=== PATIENT | female | born 1990 | race Caucasian/White ===

== ENCOUNTER 2019-08-15 19:45 | Emergency (ER) | payer MEDICAID ==
[~2019-08-15] VITALS: Ht 170.2 cm; Wt 59.0 kg
--- NOTE | 2019-08-15 20:00 | NUR ---
PT [facility] AND [employer]. PER RA, PT FOUND SLEEPING IN CAR WITH EMPTY BOTTLES OF ALCOHOL. SMELL OF ALCOHOL ON BREATH ON ARRIVAL. PT AWAKE, SLURRED SPEECH AND YELLING. VITAL SIGNS STABLE. RESPIRATIONS EVEN AND UNLABORED. NO ACUTE DISTRESS NOTED AT THIS TIME. [employer] AT BEDSIDE. WILL CONTINUE TO MONITOR
--- NOTE | 2019-08-15 20:42 | NUR ---
URINE COLLECTED AND SENT TO LAB
[2019-08-15 20:45] LABS: BASOPHILS % (AUTO) 0.5 % (0.0-2.0); EOSINOPHILS % (AUTO) 1.4 % (0.0-6.0); HEMATOCRIT 40 % (33-45); HEMOGLOBIN 13.3 g/dL (11.5-14.8); LYMPHOCYTES # (AUTO) 1.9 /CMM (0.8-4.8); LYMPHOCYTES % (AUTO) 30.7 % (20.0-44.0); MEAN CORPUSCULAR HGB CONC 34 g/dl (31.0-36.0); MEAN CORPUSCULAR VOLUME 93 fL (82-100); MONOCYTES # (AUTO) 0.2 /CMM (0.1-1.30); MONOCYTES % (AUTO) 3.8 % (2.0-12.0); NEUTROPHILS % (AUTO) 63.6 % (43.0-81.0); PLATELET COUNT (AUTO) 248 /CMM (150-450); RED BLOOD CELL COUNT(AUTO) 4.26 MIL/uL (4.0-5.2); WHITE BLOOD COUNT (AUTO) 6.3 K/uL (4.3-11.0)
[2019-08-15 20:58] LABS: CALCIUM, SERUM 8.6 mg/dL (8.5-10.1); CREATININE 0.8 mg/dL (0.6-1.3); POTASSIUM 3.5 mmol/L (3.5-5.1)
--- NOTE | 2019-08-15 21:00 | NUR ---
CALLED LAB FOR BLOOD DRAW
[2019-08-15 21:04] LABS: BILIRUBIN,DIRECT 0.1 mg/dL (0.0-0.2); BILIRUBIN,TOTAL 0.3 mg/dL (0.2-1.0); TOTAL PROTEIN, SERUM 7.1 g/dL (6.4-8.2)
[2019-08-15 21:05] LABS: SALICYLATE 1.2 mg/dL (2.8-20.0)
[2019-08-15] MEDS: IV NS 0.9% 1,000 ML BAG IV ONE (21:14)
[2019-08-15 21:17] LABS: APPEARANCE,URINE Clear (CLEAR); BILIRUBIN,URINE Negative (NEGATIVE); BLOOD, URINE Negative Ery/uL (NEGATIVE); COLOR,URINE Yellow (YELLOW); KETONES,URINE Negative (NEGATIVE); LEUKOCYTE ESTERASE ,URINE Negative (NEGATIVE); NITRITE, URINE Negative (NEGATIVE); PH,URINE 5.5 (5.0-8.0); PROTEIN,URINE Negative (NEGATIVE); UGLUCOSE Negative (NEGATIVE); UROBILINOGEN,URINE 0.2 EU/dL (0.2)
--- NOTE | 2019-08-15 21:36 | NUR ---
LIBRARY TECHNICAL ASSISTANT AT BEDSIDE FOR BLOOD DRAW. [employer] AT BEDSIDE
[2019-08-15] MEDS ORDERED: IV NS 0.9% 1,000 ML BAG IV ONE (22:00)
[2019-08-15] MEDS ORDERED: HALOPERIDOL LACTATE INJ 5 MG/ML VIAL ONE (22:05)
[2019-08-15] MEDS: HALOPERIDOL LACTATE INJ 5 MG/ML VIAL IM ONE (22:20)
--- NOTE | 2019-08-15 22:25 | NUR ---
GITA(FRIEND) CAN BE CALLED AT DISCHARGE FOR [facility] CLIF()
--- NOTE | 2019-08-16 00:49 | NUR ---
GITA (FRIEND) ETA 30MIN TO GRADUATE ADVISOR PATIENT
--- NOTE | 2019-08-16 02:19 | NUR ---
Patient discharged to home in stable condition. Written and verbal after care instructions given. Patient verbalizes understanding of instruction.IV removed. Catheter intact and site benign. Pressure and 4x4 applied to site. No bleeding noted.Pt ambulatory with a steady gait. PT INSTRUCTED NOT TO DRIVE. LEFT WITH FRIEND
[2019-08-16 02:22] VITALS: BP 118/79
== END 2019-08-16 02:22 | disposition home or self-care (01) ==
LOC: ER 19:46
DX: F10.129 Alcohol abuse with intoxication, unspecified (principal); Y90.8 Blood alcohol level of 240 mg/100 ml or more
CPT/HCPCS: 36415; 80048; 80076; 80305; 80307; 80329; 81001; 84702; 84703; 85025; 96372; 99283; G0480; J1630; J7030 ×2; 81000-TC